=== PATIENT | female | born 1940 | race Caucasian/White ===

== ENCOUNTER → 2020-09-26 | Outpatient (CLI) | payer OTHER ==
[~2020-09-26] MED LIST: ACET500 PO; AMAN100 PO; ASPI81CH PO; ATOR80 PO; CALC.25 PO; DIVA125 PO; DOCU100 PO; FELODIPINE ER10 M1 PO; FENO54 PO; FURO20 PO; Haldol5 MG/1 ML PO; MEMA10 PO; METO25ER PO; NYSTRIT TOP; VITAMIN D325 MC3 PO
[2020-09-27 13:57] LABS: Source, Urine Clean Catch
[2020-09-27 16:03] LABS: Appearance, Urine Clear (Clear); Bilirubin, Urine Neg (Neg); Blood, Urine 1+ (Neg); Color, Urine Yellow (P-Yellow); Glucose Qualitative, Urine Neg (Neg); Ketones, Urine Neg (Neg); Leukocyte Esterase, Urine 2+ (Neg); Nitrite, Urine Pos (Neg); Protein, Urine 1+ (Neg); Urobilinogen, Urine NORM (Normal)
[2020-09-27 16:24] LABS: Bacteria Many /hpf; Red Blood Cells, Urine 0-2 /hpf (0-2); Squamous Epithelial Cells Few /hpf (Few)
== END | disposition home or self-care (01) ==
LOC: LAB SHORT 13:55
PROVIDERS: Family Medicine
DX: N39.0 Urinary tract infection, site not specified (principal)
CPT/HCPCS: 81001; 87077; 87086; 87186

== ENCOUNTER 2020-11-03 15:18 | Emergency (ER) | payer OTHER ==
[~2020-11-03] VITALS: Ht 157.5 cm; Wt 70.3 kg
[2020-11-03] MEDS ORDERED: ACET500 PO (15:33)
[2020-11-03] MEDS ORDERED: ASPI81CH PO (15:34)
[2020-11-03] MEDS ORDERED: AMAN100 PO (15:34)
[2020-11-03] MEDS ORDERED: ATOR80 PO (15:34)
[2020-11-03] MEDS ORDERED: CALC.25 PO (15:35)
[2020-11-03] MEDS ORDERED: FELODIPINE ER10 M1 PO (15:36)
[2020-11-03] MEDS ORDERED: DIVA125 PO (15:36)
[2020-11-03] MEDS ORDERED: DOCU100 PO (15:36)
[2020-11-03] MEDS ORDERED: FURO20 PO (15:37)
[2020-11-03] MEDS ORDERED: FENO54 PO (15:37)
[2020-11-03] MEDS ORDERED: MEMA10 PO (15:38)
[2020-11-03] MEDS ORDERED: Haldol5 MG/1 ML PO (15:38)
[2020-11-03] MEDS ORDERED: VITAMIN D325 MC3 PO (15:39)
[2020-11-03] MEDS ORDERED: NYSTRIT TOP (15:39)
[2020-11-03] MEDS ORDERED: METO25ER PO (15:39)
[2020-11-03 15:53] LABS: Source, Urine Catheter
[2020-11-03 15:57] LABS: Appearance, Urine Clear (Clear); Bilirubin, Urine Neg (Neg); Blood, Urine 2+ (Neg); Color, Urine Yellow (P-Yellow); Glucose Qualitative, Urine Neg (Neg); Ketones, Urine Neg (Neg); Leukocyte Esterase, Urine Neg (Neg); Nitrite, Urine Neg (Neg); Protein, Urine 1+ (Neg); Urobilinogen, Urine NORM (Normal); pH, Urine 6.5 (5.0-8.0)
[2020-11-03 16:03] LABS: White Blood Cells, Urine 0-2 /hpf (0-5)
[2020-11-03 16:04] LABS: Bacteria Few /hpf; Squamous Epithelial Cells Rare /hpf (Few)
[2020-11-03 16:34] LABS: BASOPHILS ABSOLUTE AUTO 0.04 K/mm3 (0.00-0.23); BASOPHILS PERCENT AUTO 0 % (0-2); EOSINOPHILS ABSOLUTE AUTO 0.19 K/mm3 (0.00-0.68); EOSINOPHILS PERCENT AUTO 2 % (0-6); Hematocrit 44.3 % (33.0-51.0); Hemoglobin 14.3 g/dL (11.5-16.0); IMMATURE GRAN ABSOLUTE AUTO 0.04 K/mm3 (0.00-0.10); IMMATURE GRAN PERCENT AUTO 0 % (0-1); LYMPHOCYTES ABSOLUTE AUTO 1.74 K/mm3 (0.84-5.20); LYMPHOCYTES PERCENT AUTO 19 % (21-46); MONOCYTES ABSOLUTE AUTO 0.95 K/mm3 (0.16-1.47); MONOCYTES PERCENT AUTO 10 % (4-13); Mean Corpuscular HGB 29.4 pg (26.0-34.0); Mean Corpuscular HGB Conc 32.3 g/dL (31.5-36.5); Mean Corpuscular Volume 91 fL (80-100); Mean Platelet Volume 8.8 fL (9.1-12.4); NEUTROPHILS ABSOLUTE AUTO 6.47 K/mm3 (1.96-9.15); NEUTROPHILS PERCENT AUTO 69 % (41-73); Platelet Count 285 K/mm3 (150-400); RDW Coefficient Variation 13.1 % (11.7-14.2); RDW Standard Deviation 44.1 fL (35.1-46.3); Red Blood Cell Count 4.87 M/mm3 (3.80-5.20); White Blood Cell Count 9.43 K/mm3 (4.00-11.30)
[2020-11-03 16:46] LABS: Albumin, Blood 3.5 g/dL (3.4-5.0); Albumin/Globulin Ratio 1.1 (0.8-1.8); Bilirubin, Total 0.3 mg/dL (0.1-1.0); Bun/Creatinine Ratio 28.3 (12.0-20.0); Calcium, Blood 9.7 mg/dL (8.5-10.1); Creatinine, Blood 1.06 mg/dL (0.40-1.00); Globulin, Blood 3.3 g/dL (2.2-4.0); Potassium, Blood 3.9 mmol/L (3.5-5.5); Total Protein, Blood 6.8 g/dL (6.4-8.2)
== END 2020-11-03 17:32 | disposition home or self-care (01) ==
LOC: ER 15:18
PROVIDERS: Emergency Medicine
DX: R31.9 Hematuria, unspecified (principal); Z88.2 Allergy status to sulfonamides; Z88.6 Allergy status to analgesic agent; Z88.8 Allergy status to other drugs, medicaments and biological substances; Z79.899 Other long term (current) drug therapy
CPT/HCPCS: 36415; 80053; 81001; 85025; 96365; 99283-25; J0696; P9612

== ENCOUNTER 2020-12-25 11:15 | Inpatient (IN) | payer OTHER ==
[~2020-12-25] VITALS: Ht 162.6 cm; Wt 68.0 kg
[~2020-12-25 11:15] MED LIST changes: -ASPI81CH PO; +Aspir 8181 MG PO
[2020-12-25 11:49] LABS: Source, Urine Catheter
[2020-12-25 11:55] LABS: Appearance, Urine Clear (Clear); Bilirubin, Urine Neg (Neg); Blood, Urine Neg (Neg); Color, Urine Yellow (P-Yellow); Glucose Qualitative, Urine Neg (Neg); Ketones, Urine 2+ (Neg); Leukocyte Esterase, Urine Neg (Neg); Nitrite, Urine Neg (Neg); Protein, Urine 3+ (Neg); Specific Gravity, Urine 1.025 (1.003-1.022); Urobilinogen, Urine NORM (Normal)
[2020-12-25 12:00] LABS: BASOPHILS ABSOLUTE AUTO 0.03 K/mm3 (0.00-0.23); BASOPHILS PERCENT AUTO 0 % (0-2); EOSINOPHILS ABSOLUTE AUTO 0.03 K/mm3 (0.00-0.68); EOSINOPHILS PERCENT AUTO 0 % (0-6); Hematocrit 44.4 % (33.0-51.0); Hemoglobin 14.1 g/dL (11.5-16.0); IMMATURE GRAN ABSOLUTE AUTO 0.04 K/mm3 (0.00-0.10); IMMATURE GRAN PERCENT AUTO 0 % (0-1); LYMPHOCYTES ABSOLUTE AUTO 0.94 K/mm3 (0.84-5.20); LYMPHOCYTES PERCENT AUTO 10 % (21-46); MONOCYTES ABSOLUTE AUTO 1.05 K/mm3 (0.16-1.47); MONOCYTES PERCENT AUTO 11 % (4-13); Mean Corpuscular HGB 29.4 pg (26.0-34.0); Mean Corpuscular HGB Conc 31.8 g/dL (31.5-36.5); Mean Corpuscular Volume 93 fL (80-100); NEUTROPHILS ABSOLUTE AUTO 7.12 K/mm3 (1.96-9.15); NEUTROPHILS PERCENT AUTO 77 % (41-73); Platelet Count 285 K/mm3 (150-400); RDW Coefficient Variation 14.2 % (11.7-14.2); RDW Standard Deviation 48.7 fL (35.1-46.3); Red Blood Cell Count 4.79 M/mm3 (3.80-5.20); White Blood Cell Count 9.21 K/mm3 (4.00-11.30)
[2020-12-25 12:19] LABS: Albumin/Globulin Ratio 0.9 (0.8-1.8); Bilirubin, Total 0.6 mg/dL (0.1-1.0); Bun/Creatinine Ratio 22.3 (12.0-20.0); Calcium, Blood 10.1 mg/dL (8.5-10.1); Creatinine, Blood 1.3 mg/dL (0.40-1.00); Globulin, Blood 3.5 g/dL (2.2-4.0); Potassium, Blood 3.8 mmol/L (3.5-5.5); Total Protein, Blood 6.5 g/dL (6.4-8.2)
[2020-12-25 12:36] LABS: Amorphous Mod (0-Heavy); Bacteria Mod /hpf; Squamous Epithelial Cells Few /hpf (Few)
[2020-12-25 13:01] LABS: PCO2 Arterial 30.5 mmHg (35-45); PO2 Arterial 65.8 mmHg (80-100); pH Blood Arterial 7.38 (7.35-7.45)
[2020-12-25 15:24] LABS: SARS-Cov-2 (COVID-19) PCR, MMC POSITIVE (NEGATIVE)
[2020-12-25] MEDS ORDERED: DIVA125EC PO (16:37)
[2020-12-25] MEDS ORDERED: HALOPERIDOL PO (16:38)
[2020-12-25] MEDS ORDERED: RISP2 PO (16:40)
--- NOTE | 2020-12-25 18:53 | NUR ---
183 RECEIVED PT TO 309 VIA GURNEY FROM ER. RECEIVED REPORT FROM KADE HAYES. PT TO ER VIA EMS FROM [facility]. PER REPORT, PT FOUND UNRESPONSIVE. PT HAD BEEN HAVING POOR PO INTAKE WITH INCREASED WEAKNESS FOR PAST COUPLE OF DAYS. PER KADE HAYES, PT TESTED POSITIVE FOR COVID ALREADY A MONTH AGO AND STILL POSITIVE. PT ADMITTED FOR TOXIC METABOLIC ENCEPHALOPATHY. SBP IN THE 60'S ON ADMIT. 2L NS BOLUS GIVEN WITH IMPROVEMENT. BIOX 94-96% ON RA. STRAIGHT CATH DONE IN ER SHOWING UTI; CIPRO SENT UP. PT HAS BEEN MOSTLY LETHARGIC AND SLEEPING. PALLIATIVE CARE CONSULT ORDERED. PT INCONTINENT OF LOOSE STOOL IN ER AND AGAIN WHEN BROUGHT TO RM. BRUISING TO R EYE AND FORHEAD. SM SLIT/WOUND TO COCCYX NOTED WHEN CHANGING. POSITIONED FOR COMFORT. BED ALARM PLACED FOR SAFETY. CALL LT IN REACH. REPORT TO BE GIVEN TO ONCOMING RN.
[2020-12-25 22:37] LABS: U Amphetamine Screen Not Detected; U Barbituate Screen Not Detected; U Benzodiazapine Screen Not Detected; U Buprenorphine Screen Not Detected; U Cannabinoids Screen Not Detected; U Cocaine Screen Not Detected; U Methadone Screen Not Detected; U Methamphetamine Screen Not Detected; U Opiates Screen Not Detected; U Oxycodone Screen Not Detected; U Phencyclidine Screen Not Detected; U Propoxyphene Screen Not Detected
--- NOTE | 2020-12-26 04:48 | NUR ---
SHIFT SUMMARY: VA WAS ADMITTED PRIOR TO SHIFT CHANGE. SHE HAS BEEN LETHARGIC, SLEEPING THE ENTIRE SHIFT. SHE DID WAKE UP FOR ASSESSMENT. FOLLOWED DIRECTIONS WELL, AND ATTEMPTED TO ANSWER QUESTIONS. SPEECH WAS SLURRED AND DIFFICULT TO UNDERSTAND AT TIMES. SEVERE WEAKNESS BUE AND BLE. WATERWORKS EMPLOYEE WERE EQUAL DISPITE THE WEAKNESS. ABLE TO MOVE ALL EXTREMITITES, ABLE TO INFORM ME ABOUT HER FALL. BRUISING NOTED TO RIGHT EYE. DENIES PAIN. STATES HUNGRY AND DOES NOT UNDERSTAND WHY SHE COULD NOT EAT. FALLS BACK TO SLEEP EASILY. MILD RASH IN GROIN, AND OPEN SITE ON THE BOTTOM. NPO, NO MEDS GIVEN DUE TO AMS. ADMINISTERED ANTIBOTIC. VS WNL, AFEBRILE. BED ALARM ON. CALL LIGHT IN REACH.
[2020-12-26 05:15] LABS: BASOPHILS ABSOLUTE AUTO 0.03 K/mm3 (0.00-0.23); BASOPHILS PERCENT AUTO 0 % (0-2); EOSINOPHILS ABSOLUTE AUTO 0.15 K/mm3 (0.00-0.68); EOSINOPHILS PERCENT AUTO 2 % (0-6); Hemoglobin 12.3 g/dL (11.5-16.0); IMMATURE GRAN ABSOLUTE AUTO 0.02 K/mm3 (0.00-0.10); IMMATURE GRAN PERCENT AUTO 0 % (0-1); LYMPHOCYTES ABSOLUTE AUTO 1.26 K/mm3 (0.84-5.20); LYMPHOCYTES PERCENT AUTO 18 % (21-46); MONOCYTES ABSOLUTE AUTO 0.88 K/mm3 (0.16-1.47); MONOCYTES PERCENT AUTO 13 % (4-13); Mean Corpuscular HGB 29.1 pg (26.0-34.0); Mean Corpuscular HGB Conc 31.5 g/dL (31.5-36.5); Mean Corpuscular Volume 92 fL (80-100); Mean Platelet Volume 9.3 fL (9.1-12.4); NEUTROPHILS PERCENT AUTO 67 % (41-73); Platelet Count 215 K/mm3 (150-400); RDW Coefficient Variation 14.5 % (11.7-14.2); RDW Standard Deviation 48.9 fL (35.1-46.3); Red Blood Cell Count 4.22 M/mm3 (3.80-5.20); White Blood Cell Count 7.04 K/mm3 (4.00-11.30)
[2020-12-26 05:47] LABS: Albumin, Blood 2.4 g/dL (3.4-5.0); Albumin/Globulin Ratio 0.8 (0.8-1.8); Bilirubin, Total 0.6 mg/dL (0.1-1.0); Bun/Creatinine Ratio 27.1 (12.0-20.0); Calcium, Blood 9.6 mg/dL (8.5-10.1); Potassium, Blood 3.5 mmol/L (3.5-5.5); Total Protein, Blood 5.4 g/dL (6.4-8.2)
--- NOTE | 2020-12-26 10:45 | NUR ---
PATIENT REMAINS LETHARGIC RESPONDING TO TACTILE STIMULUS ONLY DEPALOTE AND HALDOL HELD THIS AM D/T PATIENT STATUS DR ALEJANDRE MADE AWARE AT THIS TIME DURING BEDSIDE ROUNDS PATIENT ALSO TO REMAIN NPO PER DR ORDERS WILL CONT TO MONITOR PATIENT EXPRESS NO PAIN NO DISTRESS NOTED
[2020-12-26 13:54] LABS: Valproic Acid 5.9 ug/mL (50.0-100.0)
--- NOTE | 2020-12-26 15:43 | NUR ---
PATIENT REMAINS LETHARGIC RESPONSIDING TO TACTILE STIUMULI EYES REMAINS CLOSED REMAINS NPO IV FLUIDS MAINTATINED ORDERED PATIENT REMAINS BEDBOUND TURNED AND REPOSITIONED X1-2 PERSON ASSIST PATIENT ABLE TO ASSIST WITH TURNING INCONTINUENT OF BLADDER NO BM NOTED THIS SHIFT EXPRESSES NO PAIN NO SOB NO DISTRESS NOTED PALLIATIVE TO BEDSIDE THIS AFTERNOON PER KAREEN WILL F/U WITH FAMILY AND [place] REGARDING PATIENT CONFORT CARE/PALLIATIVE STATUS WILL WILL CONT TO MONITOR
--- NOTE | 2020-12-26 17:25 | NUR ---
Family contact: Legal Guardian/proxy is son Cesar German [phone] POLST obtained from [facility], completed by pt and CERTIFIED NURSING ATTENDANT in 2017 is not valid as it states :"Full Code, comfort measures only, no nutritional support, dialysis ok". Son and [facility] staff aware of inconsistencies in pt's old POLST completed by her when she may have already been an incompetent decision maker due to her dementia and mental illness. Cesar reports conversations with his mom in past, with her expressed wishes for no CPR or intubation and no desire for continuance of care if she was suffering. Our current orders are in agreement with pt's previously expressed wishes and son's current expressed wishes. I cased conferenced with JUAN LUIS re: goals of care & d/c plan. Chart reviewed & I spoke with pt's RN and DR prior to calling son. POLST and options for care/dc plan reviewed .Son states he was forced to seek guardianship of his mom due to her active delusional state with mental health disorder in addition to her dementia. He was aware of chronic kidney disease and CAD that has been medically managed. Son reports that infusion of regeneron and early intervention prevented his mom from being hospitalized with covid a number of weeks ago but she has not returned to former level of energy, appetite or cognition since becoming ill. He states his roxKenna spoke with pt by phone yesterday from her hospital room. I reviewed Dr and RNs assessments with Cesar and discussed code status, goals of care and plan of care at this time. He asked questions about hospice and dc destination options. When discussing the level of care Yamilet is needing, he conceeded that he would not be able to provide her care at home and would want her to return to [facility] with hospice if that seems appropriate at d/c. He understands that she is not awake enough to feed or give fluids by mouth currently and that we are supplementing with IV fluids and some nutrition. He verbalized understanding that even if pt does not wake enough or if her intake remains minimal to none that IV hydration/nutrition would not be done at [facility] and that would limit her prognosis further. Plan formulated with son to see how the next day goes, update again tomorrow and further discuss goals of care with possible transition to comfort care if pt worsens or shows no improvement. He is clear that when pt is deemed ready for d/c that he would like her to return to [facility]. I spoke with RN at [facility] and gave update when requesting pt's POLST. I updated JUAN LUIS, RN and on my conversation with son, Cesar.
[2020-12-27 05:12] LABS: BASOPHILS ABSOLUTE AUTO 0.03 K/mm3 (0.00-0.23); BASOPHILS PERCENT AUTO 0 % (0-2); EOSINOPHILS ABSOLUTE AUTO 0.24 K/mm3 (0.00-0.68); EOSINOPHILS PERCENT AUTO 3 % (0-6); Hematocrit 42.1 % (33.0-51.0); Hemoglobin 13.5 g/dL (11.5-16.0); IMMATURE GRAN ABSOLUTE AUTO 0.01 K/mm3 (0.00-0.10); IMMATURE GRAN PERCENT AUTO 0 % (0-1); LYMPHOCYTES ABSOLUTE AUTO 1.69 K/mm3 (0.84-5.20); LYMPHOCYTES PERCENT AUTO 23 % (21-46); MONOCYTES ABSOLUTE AUTO 0.93 K/mm3 (0.16-1.47); MONOCYTES PERCENT AUTO 13 % (4-13); Mean Corpuscular HGB 29.5 pg (26.0-34.0); Mean Corpuscular HGB Conc 32.1 g/dL (31.5-36.5); Mean Corpuscular Volume 92 fL (80-100); Mean Platelet Volume 9.4 fL (9.1-12.4); NEUTROPHILS ABSOLUTE AUTO 4.36 K/mm3 (1.96-9.15); NEUTROPHILS PERCENT AUTO 60 % (41-73); Platelet Count 231 K/mm3 (150-400); RDW Coefficient Variation 14.2 % (11.7-14.2); RDW Standard Deviation 47.9 fL (35.1-46.3); Red Blood Cell Count 4.58 M/mm3 (3.80-5.20); White Blood Cell Count 7.26 K/mm3 (4.00-11.30)
--- NOTE | 2020-12-27 05:15 | NUR ---
SHIFT SUMMARRY PATIENT C/O COCCYX, TREATED WITH PRN FENTANYL IV WITH GOOD EFFECTS. SLEPT QUIETLY DURING THE NIGHT WITH NO ACUTE MEDICAL CHANGE
[2020-12-27 05:43] LABS: Albumin, Blood 2.6 g/dL (3.4-5.0); Anion Gap 7 mmol/L (6-16); Blood Urea Nitrogen 28 mg/dL (8-24); Bun/Creatinine Ratio 33.3 (12.0-20.0); CO2, Blood 23 mmol/L (21-32); Calcium, Blood 9.8 mg/dL (8.5-10.1); Chloride, Blood 111 mmol/L (98-108); Creatinine, Blood 0.84 mg/dL (0.40-1.00); Glomerular Filtration Rate >60 (60-); Glucose, Blood 121 mg/dL (70-99); Phosphorus, Blood 2.6 mg/dL (2.5-4.9); Potassium, Blood 3.6 mmol/L (3.5-5.5); Sodium, Blood 141 mmol/L (136-145)
--- NOTE | 2020-12-27 10:21 | NUR ---
EMR reviewed and case conferenced with pt's RN and CM this am. Pt is more awake and alert today. She is still not eating or drinking with inadequate intake for sustaining life. ST eval pending. I spoke with son, Cesar and provided update. Discussed [facility] advanced care planning and hospice if pt's PO intake/interest in eating did not return. I discussed that pt's behaviors may become problematic now that all routine maintenance rxs have been stopped for a couple days. Cesar acknowledged this. We discussed restart of rxs and ST eval. He warned to be alert for two distinct personalities. One is a sweet, NUNA[place]YARMIUT, older lady and the other is a "raging bitch who will take a swing at you and can hear anything across three rooms". When I passed this on to RN she confirmed that pt had taken a swing at the ST in to evaluate for feeding plan and swallow. Will cont to follow for support. If pt meets criteria for protein/calorie malnutrion she would meet medicare hospice criteria but I do not believe that on the dementia dx alone she would meet medicare hospice criteria. Her dual dx of mental illness/dementia may weigh in but that would be up to an individual hospice agency. Son confirms his mom has been steadily loosing weight for some time and has had minimal interest in activity, eating and drinking at [facility]. We reviewed the normal progression of dementia including this withdrawal from activity, eating and drinking, weakness and impaired swallow, weight loss. Cesar verbalized understanding.
--- NOTE | 2020-12-27 17:11 | NUR ---
PATIENT NOTED THIS SHIFT WITH INCREASED LOC EYES OPEN RESPONDING TO VERBAL COMMANDS REMAINS WITH INTERMITTENT CONFUSION AND FORGETFULNESS REORIENTED TO PLACE TIME AND EVENT NEEDED HOWEVER ANSWERING SOME QUESTIONS APPROPRIATELY REMAINS IN BED CHECK AND CHANGED TUNRED AND REPOSITIONED THROUGHOUT THE SHIFT VERBALIZED MILD PAIN TO BACK/SACRUM TYLENOL GIVEN ORDERED EVAL/TX PER ST THIS SHIFT PATIENT NO LONGER NPO DIET UPGRADED ABLE TO TOLERATE THIN LIQUIDS WILL CONTINUE TO MONITOR WILL ATTEMPT TO ENCOURAGE ASSIST WITH PO INTAKE/DINNER DISCOLRATION/BRUISING REMAINS TO RT EYE/SIDE OF FACE DENIES HEADACHE WILL CONT TO MONITOR
--- NOTE | 2020-12-27 18:25 | NUR ---
PATIENT ALERT ORIENTED TO SELF REMAINS CONFUSED INADEQUATE/POOR MEAL INTAKE DESPITE SETUP ASSIST AND ENCOURAGEMENT PATIENT ONLY CONSUMED 1-2 BITES OF FOOD IV FLUIDS MAINTAINED PER ORDERS AT THIS TIME WILL CONT TO MONITOR
[2020-12-28 04:53] LABS: BASOPHILS ABSOLUTE AUTO 0.03 K/mm3 (0.00-0.23); BASOPHILS PERCENT AUTO 0 % (0-2); EOSINOPHILS ABSOLUTE AUTO 0.16 K/mm3 (0.00-0.68); EOSINOPHILS PERCENT AUTO 2 % (0-6); Hematocrit 38.3 % (33.0-51.0); Hemoglobin 12.9 g/dL (11.5-16.0); IMMATURE GRAN ABSOLUTE AUTO 0.03 K/mm3 (0.00-0.10); IMMATURE GRAN PERCENT AUTO 0 % (0-1); LYMPHOCYTES ABSOLUTE AUTO 1.34 K/mm3 (0.84-5.20); LYMPHOCYTES PERCENT AUTO 18 % (21-46); MONOCYTES ABSOLUTE AUTO 0.86 K/mm3 (0.16-1.47); MONOCYTES PERCENT AUTO 11 % (4-13); Mean Corpuscular HGB 30.3 pg (26.0-34.0); Mean Corpuscular HGB Conc 33.7 g/dL (31.5-36.5); Mean Corpuscular Volume 90 fL (80-100); Mean Platelet Volume 9.3 fL (9.1-12.4); NEUTROPHILS ABSOLUTE AUTO 5.21 K/mm3 (1.96-9.15); NEUTROPHILS PERCENT AUTO 68 % (41-73); Platelet Count 229 K/mm3 (150-400); RDW Coefficient Variation 14.4 % (11.7-14.2); RDW Standard Deviation 47.7 fL (35.1-46.3); Red Blood Cell Count 4.26 M/mm3 (3.80-5.20); White Blood Cell Count 7.63 K/mm3 (4.00-11.30)
--- NOTE | 2020-12-28 04:53 | NUR ---
SHIFT SUMMARRY PATIENT IS CALM AND QUIET THROUGH OUT SHIFT. HR TACHY IN THE 150S. MD NOTIFIED. TELE AND EKG ORDERED. ABNORMAL WIDE QRS TACHYCARDIA NOTED. PO METOPROLOL ORDERED AND GIVEN WITH MINIMAL EFFECTS. TWO DOSES OF IV LOPRESSOR 5MG ORDERED WITH GOOD EFFECTS. LAST H RATE 118.
[2020-12-28 05:16] LABS: Albumin, Blood 2.5 g/dL (3.4-5.0); Anion Gap 6 mmol/L (6-16); Blood Urea Nitrogen 29 mg/dL (8-24); Bun/Creatinine Ratio 35.7 (12.0-20.0); CO2, Blood 22 mmol/L (21-32); Calcium, Blood 9.5 mg/dL (8.5-10.1); Chloride, Blood 112 mmol/L (98-108); Creatinine, Blood 0.81 mg/dL (0.40-1.00); Glomerular Filtration Rate >60 (60-); Glucose, Blood 147 mg/dL (70-99); Phosphorus, Blood 2.9 mg/dL (2.5-4.9); Sodium, Blood 140 mmol/L (136-145)
--- NOTE | 2020-12-28 08:12 | NUR ---
PATIENT WOKE EASILY, TELE CALL HEART RATE 140'S, DENIES PAIN OR N/V
--- NOTE | 2020-12-28 10:18 | NUR ---
DR COX ROUNDED, EKG ORDERED, LOPRESSOR DOSE GIVEN, TELE READING AFIB VS SINUS TACH
--- NOTE | 2020-12-28 16:02 | NUR ---
REPORT TO PCU NURSE FR PATIENT TRANSFER
--- NOTE | 2020-12-28 16:03 | NUR ---
Received report on this pt for transfer to PCU. Notified pharmacy to send gtt to pcu instead of medical floor. Medical charge nurse notified that we are ready to transfer the pt but they are awaiting assistance upstairs.
--- NOTE | 2020-12-28 16:15 | NUR ---
TRANSPORTED TO U FOR CARDIZEM GTT
--- NOTE | 2020-12-28 16:17 | NUR ---
KAMLA FROM [facility] CALLED, PATIENT HAS A HISTORY OF MULTIPLE PERSONALITY DISORDERS, VERY CONFUSED, BASELINE ACTIVITY IS USING THE WALKER FOR VERY SHORT DISTANCES, PATIENT FEEL ON 11/27/20 AND THAT IS HOW SHE GOT THE BLACK EYE, PATIENT HAS A SON THAT SHE CONTINUES TO SAY SHE HAS DISOWNED JOESPH
--- NOTE | 2020-12-28 16:55 | NUR ---
PT ARRIVED TO ROOM FROM MEDICAL FLOOR.SHE IS A/O X 4 BUT FATIGUED. UPON ARRIVAL HER HEART RATE WAS IN THE 140'S AND SHE WAS IN A-FIB/A-FLUTTER PER BALLOON SANDER. THE CARDIZEM GTT WAS STARTED ORDERED AND SHE QUICKLY RESPONDED AND HER GTT WAS TITRATED DOWN TO 5MG/HR AND HER HEART RATE IS CURRENTLY 62. SHE DENIES ANY CHEST PAIN OR SOB. SHE HAS NO REPORTS OF DISCOMFORT. HER BP IS STABLE. THIS NURSE CHANGED HER BRIEF AND WASHED HER FACE. SHE IS RESTING NOW WITH HER CALL LIGHT IN REACH.
--- NOTE | 2020-12-28 17:32 | NUR ---
UPDATE PT HEART RATE WAS DIPPING DOWN INTO THE 50'S. CARDIZEM GTT WAS STOPPED. CHARGE NURSE NOTIFIED. DR ALEJANDRE NOTIFIED AND GAVE ORDERS TO DC THE GTT AND START PRN METOPRLOL. PT HEART RATE IS FLUCTUATING BETWEEN 50'S-60'S AND SHE IS ASLEEP. POWERGLIDE WAS STARTED FOR IV ACCESS. SHE HAS HER CALL LIGHT IN REACH.
--- NOTE | 2020-12-28 18:29 | NUR ---
Telephone update to son and guardian, Cesar, this evening with report on events of the night and t/o today, including transfer to PCU #6 for darienthomyarely broderick for a-fib. Answered Cesar's questions re: causes and tx for a-fib and other chronic conditions. Updated him on improved alertness, PO intake. Cesar reports late in adulthood he recognized that his mom had multiple personalities for as long as he can remember but felt that whe was able to hide them and manage her psych s/s better when she was a young women and has increasingly not been able to do that as she aged. He states the dementia was only noted and dx in recent years but his mom has always been "crazy" with multiple distinct personalities that he can identify when each one is present. He again reports there have been two primary personalities but additional ones noted over the years also. He asked more questions re: Hospice and states that if his mom qualifies for hospice at the time of d/c he would be in favor of it to assist staff and support his mom at [facility]. He would like to complete a new POLST as he states the one completed by his mom is invalid for reasons mentioned in a previous note with conflicting requests. I reviewed again criteria for hospice and stated we would reevaluate on Thursday for that and even if she did not meet criteria at the time of d/c that in the future if Yamilet was not eating/drinking or appeared to be failing, her PCP could be contacted for Hospice care instead of readmission to the hospital. I passed on to Cesar that is treating current issues and concerns to improve her health status and QOL if possible, therapy and medications if pt allows and that she is not medically ready for d/c at this time. Cesar verbalized understanding and appreciation for the update. I gave him the unit # for his daughter to call for updates over the weekend.
--- NOTE | 2020-12-29 07:20 | NUR ---
SHIFT SUMMARY PT IS A/OX0 WITH CONFUSION. SOMETIMES VERBALISES WHAT SHE NEEDS. PT ON TELE AFIB UNCONTROLLED MD AWARE DID GIVE MEDS PER ORDER AND HAD TO CALL IN AM FOR ELEVATED HR; MED. PER ORDERS GOT HR TO LOW 100'S. DOES NOT CALL APPROPRIATELY. REPOSITIONED Q2H TURNS. BUTTOCK AREA PINK/RED, CREAM APPLIED AND CLEANED.
--- NOTE | 2020-12-29 07:48 | NUR ---
[place] of Care Pt is awake and alert but does not want to be disturbed. She is able to answer most questions but does not know the date/time. COAL UNLOADER assisted her with a bed bath. Per report her heart rate was elevated over night and this will be addressed with the DR this morning during rounds as she was sensitive to the cardizem gtt last maryse. The bed alarm is on for safety and she has her call light in reach.
[2020-12-29 10:06] LABS: BASOPHILS ABSOLUTE AUTO 0.04 K/mm3 (0.00-0.23); BASOPHILS PERCENT AUTO 1 % (0-2); EOSINOPHILS ABSOLUTE AUTO 0.14 K/mm3 (0.00-0.68); EOSINOPHILS PERCENT AUTO 2 % (0-6); Hematocrit 38.9 % (33.0-51.0); IMMATURE GRAN ABSOLUTE AUTO 0.02 K/mm3 (0.00-0.10); IMMATURE GRAN PERCENT AUTO 0 % (0-1); LYMPHOCYTES ABSOLUTE AUTO 1.51 K/mm3 (0.84-5.20); LYMPHOCYTES PERCENT AUTO 20 % (21-46); MONOCYTES ABSOLUTE AUTO 0.83 K/mm3 (0.16-1.47); MONOCYTES PERCENT AUTO 11 % (4-13); Mean Corpuscular HGB 30.4 pg (26.0-34.0); Mean Corpuscular HGB Conc 33.4 g/dL (31.5-36.5); Mean Corpuscular Volume 91 fL (80-100); Mean Platelet Volume 9.6 fL (9.1-12.4); NEUTROPHILS ABSOLUTE AUTO 4.91 K/mm3 (1.96-9.15); NEUTROPHILS PERCENT AUTO 66 % (41-73); Platelet Count 199 K/mm3 (150-400); RDW Coefficient Variation 14.7 % (11.7-14.2); RDW Standard Deviation 48.8 fL (35.1-46.3); Red Blood Cell Count 4.27 M/mm3 (3.80-5.20); White Blood Cell Count 7.45 K/mm3 (4.00-11.30)
[2020-12-29 10:09] LABS: Albumin, Blood 2.4 g/dL (3.4-5.0); Anion Gap 4 mmol/L (6-16); Blood Urea Nitrogen 30 mg/dL (8-24); Bun/Creatinine Ratio 34.4 (12.0-20.0); CO2, Blood 24 mmol/L (21-32); Calcium, Blood 9.6 mg/dL (8.5-10.1); Chloride, Blood 113 mmol/L (98-108); Creatinine, Blood 0.87 mg/dL (0.40-1.00); Glomerular Filtration Rate >60 (60-); Glucose, Blood 116 mg/dL (70-99); Phosphorus, Blood 2.9 mg/dL (2.5-4.9); Sodium, Blood 141 mmol/L (136-145)
--- NOTE | 2020-12-29 11:56 | NUR ---
UPDATE Dr Gutiérrez changed patient back to medical status. The echo was completed as ordered. Report has been called to the receiving RN. All personal belongings sent with the pt. Pt assisted up to medical floor.
--- NOTE | 2020-12-29 13:13 | NUR ---
RECIEVED PT FROM PCU 6 AT 1210. PT TRANSFERED OVER TO NEW BED. PT JUST WANTED TO SLEEP AND DID NOT ENTERACT MUCH DURING TURNING AND MOVING HER OVER AND CHANGING SHEETS. PT JUST WENT BACK TO SLEEP. CALL LIGHT IS WITHIN REACH AND BED ALARM PLACED.
--- NOTE | 2020-12-29 14:12 | NUR ---
TRANSFERING CARE OF PT. PT HAS BEEN SLEEPIING SINCE SHE ARRIVED. PT WILL WAKE UP, BUT SEEMS TO REALLY WANT TO SLEEP. HR PER BIAZZI NITRATOR OPERATOR HAS BEEN IN THE AROUND 120. CALL LIGHT IS WITHIN REACH AND BED ALARM IN PLACE.
--- NOTE | 2020-12-29 18:28 | NUR ---
SHIFT SUMMARY PATIENT HAS BEEN ASLEEP FOR MOST OF SHIFT, WHICH IS NORMAL ACCORDING TO FAMILY. PATIENT OCCASIONALLY WAKES UP WHEN FOOD ARRIVES BUT IS TO WEAK FOR SOLID FOOD AND WILL DRINK ENSURES. PATIENT HAS BEEN TACHY IN THE 120S AND WAS GOING TO PUSH IV METOPROPOL BUT CONFIRMED RATE WITH TELETECH GLORIA AND RATE WAS TRENDING LOWER AND DECLINED TO GIVE MEDICATION DUE TO TREND.
[2020-12-30 05:53] LABS: BASOPHILS ABSOLUTE AUTO 0.04 K/mm3 (0.00-0.23); BASOPHILS PERCENT AUTO 1 % (0-2); EOSINOPHILS ABSOLUTE AUTO 0.36 K/mm3 (0.00-0.68); EOSINOPHILS PERCENT AUTO 5 % (0-6); Hematocrit 39.7 % (33.0-51.0); Hemoglobin 12.7 g/dL (11.5-16.0); IMMATURE GRAN ABSOLUTE AUTO 0.01 K/mm3 (0.00-0.10); IMMATURE GRAN PERCENT AUTO 0 % (0-1); LYMPHOCYTES ABSOLUTE AUTO 1.46 K/mm3 (0.84-5.20); LYMPHOCYTES PERCENT AUTO 20 % (21-46); MONOCYTES ABSOLUTE AUTO 0.72 K/mm3 (0.16-1.47); MONOCYTES PERCENT AUTO 10 % (4-13); Mean Corpuscular HGB 29.7 pg (26.0-34.0); Mean Corpuscular Volume 93 fL (80-100); Mean Platelet Volume 9.6 fL (9.1-12.4); NEUTROPHILS ABSOLUTE AUTO 4.62 K/mm3 (1.96-9.15); NEUTROPHILS PERCENT AUTO 64 % (41-73); Platelet Count 175 K/mm3 (150-400); RDW Coefficient Variation 14.8 % (11.7-14.2); RDW Standard Deviation 50.5 fL (35.1-46.3); Red Blood Cell Count 4.27 M/mm3 (3.80-5.20); White Blood Cell Count 7.21 K/mm3 (4.00-11.30)
[2020-12-30 06:43] LABS: Albumin, Blood 2.4 g/dL (3.4-5.0); Anion Gap 6 mmol/L (6-16); Blood Urea Nitrogen 29 mg/dL (8-24); Bun/Creatinine Ratio 31.9 (12.0-20.0); CO2, Blood 23 mmol/L (21-32); Calcium, Blood 9.7 mg/dL (8.5-10.1); Chloride, Blood 113 mmol/L (98-108); Creatinine, Blood 0.91 mg/dL (0.40-1.00); Glomerular Filtration Rate 60 (60-); Glucose, Blood 113 mg/dL (70-99); Phosphorus, Blood 3.2 mg/dL (2.5-4.9); Potassium, Blood 3.8 mmol/L (3.5-5.5); Sodium, Blood 142 mmol/L (136-145)
--- NOTE | 2020-12-30 07:40 | NUR ---
SHIFT SUMMARY PT WAS INITIALLY DROWSY AT BEGINNING OF SHIFT BUT BECAME MORE ALERT TOWARDS 0400, USING CALL LIGHT TO CALL FOR PAIN MEDICATION PRN BACK PAIN. RECIEVED METOPROLOL AT 1900 FOR HR >120. TELE MONITORED PT BETWEEN 60-100'S A-FIB. IV ACCESS IN THE RAC. PT WITH HX OF DEMENTIA, HTN, HLD, TOXIC METABOLIC ENCEPH AND COVID.
--- NOTE | 2020-12-30 15:51 | NUR ---
SHIFT SUMMARY PATIENT IS ALERT AND ORIENTED X4 MORE INTERACTVE. PATIENT SELF FED BREAKFAST AND LUNCH AND HAD A GOOD APPETITE. KNOCKUP WORKER CALLED X2 ABOUT HEAT RATE OVER 120 WENT TO MEDICATE PER ORDERS NAD HEART RATE WAS 89 MEDICATION NOT ADMINISTERED. PATIENT IN STABLE CONDITOIN WILL CONTINUE TO MONITOR.
--- NOTE | 2020-12-31 06:29 | NUR ---
SHIFT SUMMARY PATIENT ALERT AND ORIENTED X3. MEDICATE PER EMAR FOR PAIN. NO COMPLAINTS OF SHORTNESS OF BREATH. NO ACUTE ISSUES NOTED OVERNGIHT. BED IN LOWEST POSITION WITH WHEELS LOCKED AND ALARM ON. CALL LIGHT WITHIN REACH. REPORT GIVEN TO ONCOMING RN.
--- NOTE | 2020-12-31 12:48 | NUR ---
Update to son on progress and status over weekend as planned. POLST completed over the phone with son, who is pt's guardian also. He was glad to hear that mentation and appetite/intake had improved. He states his mom has always said she did not want CPR, intubation or to be hooked to tubes for mcc feeding or dialysis. This was outlined in POLST and reviewed with pt's bedside nurse and CM working on d/c planning. Son, Cesar, informed that pt may be medically ready for d/c soon and return to [facility]. He has been in contact with them since pt's admission and states they were agreeable to her returning home. CM had also been in contact with them last week. Today's CM updated on POLST and need for signature and copy to [facility] to submit to medical records before original sent to [facility] with pt.
[2020-12-31] MEDS ORDERED: OLAN5 PO (14:15)
--- NOTE | 2020-12-31 17:14 | NUR ---
DISCHARGE NOTE PT IS AO. PT IV REMOVED BY THIS RN PER DOCUMENTATION. DC INSTRUCTIONS AND MEDICATIONS SENT TO [facility]. POLST FORM FAXED BY [facility] AND COPY PROVIDED TO TRANSPORTER. PT ASSISTED INTO WHEELCHAIR WITH 3 ASSIST. PT DRESSED IN HOSPITAL GOWN FOR DC. PT BELONGINGS GATHERED FROM ROOM. PT LEFT BUILDING WITH TRANSPORT VIA WHEELCHAIR TO [facility]. THIS RN GAVE AN UPDATE TO FREDDY CASON.
== END 2020-12-31 17:08 | disposition home or self-care (01) | DRG 91 ==
LOC: ER 11:15 → MEDS 16:25 → PCU 12-28 16:10 → MEDS 12-29 12:10 → ENPENDDIS 12-31 12:57 → MEDS 12-31 17:08
PROVIDERS: Emergency Medicine; Family Medicine; ADMIT Hospitalist
PROC: 8E0ZXY6 Isolation (ICD-10-PCS; principal; 2020-12-25)
DX: G92 Toxic encephalopathy (principal); U07.1 COVID-19; I48.92 Unspecified atrial flutter; N17.9 Acute kidney failure, unspecified; E78.5 Hyperlipidemia, unspecified; I25.10 Atherosclerotic heart disease of native coronary artery without angina pectoris; Z66 Do not resuscitate; E86.0 Dehydration; I95.9 Hypotension, unspecified; I08.1 Rheumatic disorders of both mitral and tricuspid valves; M81.0 Age-related osteoporosis without current pathological fracture; R79.1 Abnormal coagulation profile; I12.9 Hypertensive chronic kidney disease with stage 1 through stage 4 chronic kidney disease, or unspecified chronic kidney disease; F03.90 Unspecified dementia, unspecified severity, without behavioral disturbance, psychotic disturbance, mood disturbance, and anxiety; I48.91 Unspecified atrial fibrillation; S09.90XA Unspecified injury of head, initial encounter; N18.9 Chronic kidney disease, unspecified; Z88.2 Allergy status to sulfonamides; Z88.1 Allergy status to other antibiotic agents; Z95.2 Presence of prosthetic heart valve; Z88.8 Allergy status to other drugs, medicaments and biological substances; Z79.82 Long term (current) use of aspirin; Z79.899 Other long term (current) drug therapy; Z88.6 Allergy status to analgesic agent; W19.XXXA Unspecified fall, initial encounter
CPT/HCPCS: 36415; 36600; 51701; 70450; 71045; 80053; 80069; 80164; 81001; 82803; 82947; 83605; 83735; 83880; 84145; 84443; 85025; 85379; 87040; 87086; 92610; 93005; 93010; 93306; 94762; 96361; 96374; 99285-25; A9270; C1751; J0295; J0744; J1650; J3010; J7030; J7050; U0004

== ENCOUNTER → 2021-01-14 | Outpatient (CLI) | payer OTHER ==
[~2021-01-14] MED LIST changes: +DIVA125EC PO; +HALOPERIDOL PO; +OLAN5 PO; +RISP2 PO
[2021-01-15 19:36] LABS: Appearance, Urine Clear (Clear); Bilirubin, Urine Neg (Neg); Blood, Urine 1+ (Neg); Glucose Qualitative, Urine Neg (Neg); Ketones, Urine Neg (Neg); Leukocyte Esterase, Urine 3+ (Neg); Nitrite, Urine Pos (Neg); Protein, Urine 1+ (Neg); Urobilinogen, Urine NORM (Normal); pH, Urine 6.5 (5.0-8.0)
[2021-01-15 20:05] LABS: Color, Urine Pale Yellow (P-Yellow)
[2021-01-15 20:06] LABS: Bacteria Many /hpf; Red Blood Cells, Urine Not Seen /hpf (0-2); Squamous Epithelial Cells Not Seen /hpf (Few); White Blood Cells, Urine 50-100 /hpf (0-5)
== END | disposition home or self-care (01) ==
LOC: LAB SHORT 11:00
PROVIDERS: Family Medicine
DX: N39.0 Urinary tract infection, site not specified (principal)
CPT/HCPCS: 81001; 87077; 87086; 87186

== ENCOUNTER → 2021-01-31 | Outpatient (CLI) | payer OTHER ==
[2021-01-31 19:12] LABS: Source, Urine Clean Catch
[2021-01-31 20:13] LABS: Appearance, Urine Clear (Clear); Bilirubin, Urine Neg (Neg); Blood, Urine Neg (Neg); Glucose Qualitative, Urine Neg (Neg); Ketones, Urine Neg (Neg); Leukocyte Esterase, Urine Neg (Neg); Nitrite, Urine Neg (Neg); Protein, Urine 2+ (Neg); Specific Gravity, Urine 1.015 (1.003-1.022); Urobilinogen, Urine NORM (Normal)
[2021-01-31 20:22] LABS: Color, Urine Pale Yellow (P-Yellow)
[2021-01-31 20:23] LABS: Red Blood Cells, Urine Not Seen /hpf (0-2); White Blood Cells, Urine Not Seen /hpf (0-5)
[2021-01-31 20:24] LABS: Bacteria Not Seen /hpf; Squamous Epithelial Cells Not Seen /hpf (Few)
== END | disposition home or self-care (01) ==
LOC: LAB SHORT 19:11
PROVIDERS: Family Medicine
DX: N39.0 Urinary tract infection, site not specified (principal)
CPT/HCPCS: 81001

== ENCOUNTER → 2021-07-10 | Outpatient (CLI) | payer OTHER ==
[2021-07-10 18:52] LABS: Source, Urine Voided
[2021-07-10 18:56] LABS: Bilirubin, Urine Neg (Neg); Blood, Urine 1+ (Neg); Glucose Qualitative, Urine Neg (Neg); Ketones, Urine Neg (Neg); Leukocyte Esterase, Urine 3+ (Neg); Nitrite, Urine Pos (Neg); Protein, Urine 2+ (Neg); Urobilinogen, Urine NORM (Normal)
[2021-07-10 19:09] LABS: Appearance, Urine Clear (Clear); Bacteria Few /hpf; Color, Urine Pale Yellow (P-Yellow); Squamous Epithelial Cells Rare /hpf (Few)
== END ==
LOC: LAB SHORT 15:00
PROVIDERS: Family Medicine
DX: N39.0 Urinary tract infection, site not specified (principal)
CPT/HCPCS: 81001

== ENCOUNTER → 2021-07-17 | Outpatient (CLI) | payer OTHER ==
[2021-07-17 12:10] LABS: Source, Urine Clean Catch
[2021-07-17 13:11] LABS: Appearance, Urine Clear (Clear); Bilirubin, Urine Neg (Neg); Blood, Urine Neg (Neg); Color, Urine Yellow (P-Yellow); Glucose Qualitative, Urine Neg (Neg); Ketones, Urine Neg (Neg); Leukocyte Esterase, Urine 3+ (Neg); Nitrite, Urine Neg (Neg); Protein, Urine 1+ (Neg); Specific Gravity, Urine 1.015 (1.003-1.022); Urobilinogen, Urine NORM (Normal)
[2021-07-17 13:36] LABS: Bacteria Many /hpf; Red Blood Cells, Urine 0-2 /hpf (0-2); Squamous Epithelial Cells Rare /hpf (Few)
== END | disposition home or self-care (01) ==
LOC: LAB SHORT 10:00
PROVIDERS: Family Medicine
DX: N39.0 Urinary tract infection, site not specified (principal)
CPT/HCPCS: 81001; 87077; 87086; 87186

== ENCOUNTER → 2021-09-17 | Outpatient (CLI) | payer OTHER ==
[2021-09-17 18:58] LABS: Source, Urine Clean Catch
[2021-09-17 19:27] LABS: Appearance, Urine Hazy (Clear); Bilirubin, Urine Neg (Neg); Blood, Urine 1+ (Neg); Glucose Qualitative, Urine Neg (Neg); Ketones, Urine Neg (Neg); Leukocyte Esterase, Urine 3+ (Neg); Nitrite, Urine Neg (Neg); Protein, Urine 2+ (Neg); Urobilinogen, Urine NORM (Normal)
[2021-09-17 19:40] LABS: Color, Urine Pale Yellow (P-Yellow); White Blood Cells, Urine 25-50 /hpf (0-5)
[2021-09-17 19:41] LABS: Bacteria Mod /hpf; Squamous Epithelial Cells Few /hpf (Few)
== END | disposition home or self-care (01) ==
LOC: LAB SHORT 13:30 → LAB 13:30
PROVIDERS: Family Medicine
DX: N39.0 Urinary tract infection, site not specified (principal)
CPT/HCPCS: 81001

== ENCOUNTER 2021-09-26 14:04 | Day surgery (SDC) | payer OTHER ==
[2021-09-26] MEDS ORDERED: CALC.25 PO (17:14)
[2021-09-26] MEDS ORDERED: SULTRIDS PO (17:14)
[2021-09-26] MEDS ORDERED: FURO20 PO (17:15)
[2021-09-26] MEDS ORDERED: ATOR80 PO (17:15)
[2021-09-26] MEDS ORDERED: THERA-D2000 UNIT PO (17:15)
[2021-09-26] MEDS ORDERED: ACET500 PO (17:16)
[2021-09-26] MEDS ORDERED: DOCU100 PO (17:17)
[2021-09-26] MEDS ORDERED: FENO54 PO (17:17)
[2021-09-26] MEDS ORDERED: MEMA10 PO (17:18)
[2021-09-26] MEDS ORDERED: HALO2 IV (17:19)
[2021-09-26] MEDS ORDERED: DIVA250EC PO (17:19)
[2021-09-26] MEDS ORDERED: AMAN100 PO (17:20)
[2021-09-26] MEDS ORDERED: EXELON1 EA10 TOP (17:20)
== END 2021-09-26 16:30 | disposition home or self-care (01) ==
LOC: ATC 14:04
DX: N39.0 Urinary tract infection, site not specified (principal); R31.9 Hematuria, unspecified
CPT/HCPCS: 96372; J1335; J2001

== ENCOUNTER → 2021-12-19 | Outpatient (CLI) | payer OTHER ==
[~2021-12-19] MED LIST changes: +DIABETIC T100 MG/5 M PO; +DIVA250EC PO; +DULCOLAX400 MG/5 M PO; +EXELON1 EA10 TOP; +HALO2 IV; +HALOPERIDOL2 MG/1 M1 PO; +LOPE2C PO; +SULTRIDS PO; +THERA-D2000 UNIT PO
[2021-12-19 13:38] LABS: Source, Urine Clean Catch
[2021-12-19 15:31] LABS: Appearance, Urine Hazy (Clear); Bilirubin, Urine Neg (Neg); Blood, Urine Neg (Neg); Color, Urine Yellow (P-Yellow); Glucose Qualitative, Urine Neg (Neg); Ketones, Urine 1+ (Neg); Leukocyte Esterase, Urine 3+ (Neg); Nitrite, Urine Neg (Neg); Protein, Urine 1+ (Neg); Specific Gravity, Urine 1.015 (1.003-1.022); Urobilinogen, Urine NORM (Normal)
[2021-12-19 16:01] LABS: Bacteria Many /hpf; Red Blood Cells, Urine 0-2 /hpf (0-2); Squamous Epithelial Cells Mod /hpf (Few)
== END | disposition home or self-care (01) ==
LOC: LAB SHORT 13:35
PROVIDERS: Family Medicine
DX: N39.0 Urinary tract infection, site not specified (principal)
CPT/HCPCS: 81001; 87077; 87086; 87186

== ENCOUNTER 2021-12-20 13:14 | Inpatient (IN) | payer OTHER ==
[~2021-12-20] VITALS: Ht 157.5 cm; Wt 73.2 kg
[~2021-12-20 13:14] MED LIST changes: -DIABETIC T100 MG/5 M PO; -DULCOLAX400 MG/5 M PO; -HALOPERIDOL2 MG/1 M1 PO; -LOPE2C PO; -OLAN5 PO
[2021-12-20 13:45] LABS: Source, Urine Straight Cath
[2021-12-20 13:48] LABS: Appearance, Urine Hazy (Clear); Blood, Urine Neg (Neg); Color, Urine Yellow (P-Yellow); Glucose Qualitative, Urine Neg (Neg); Ketones, Urine 1+ (Neg); Leukocyte Esterase, Urine 1+ (Neg); Nitrite, Urine Neg (Neg); Protein, Urine 1+ (Neg); Specific Gravity, Urine 1.015 (1.003-1.022); Urobilinogen, Urine NORM (Normal)
[2021-12-20 13:58] LABS: Albumin, Blood 2.9 g/dL (3.4-5.0); Albumin/Globulin Ratio 0.9 (0.8-1.8); Bilirubin, Total 0.5 mg/dL (0.1-1.0); Bun/Creatinine Ratio 38.5 (12.0-20.0); Calcium, Blood 9.9 mg/dL (8.5-10.1); Creatinine, Blood 1.74 mg/dL (0.40-1.00); Globulin, Blood 3.4 g/dL (2.2-4.0); Potassium, Blood 3.7 mmol/L (3.5-5.5); Total Protein, Blood 6.3 g/dL (6.4-8.2)
[2021-12-20 14:03] LABS: Bilirubin, Urine 1+ (Neg)
[2021-12-20 14:05] LABS: BASOPHILS ABSOLUTE AUTO 0.05 K/mm3 (0.00-0.23); BASOPHILS PERCENT AUTO 0 % (0-2); EOSINOPHILS ABSOLUTE AUTO 0.02 K/mm3 (0.00-0.68); EOSINOPHILS PERCENT AUTO 0 % (0-6); Hematocrit 45.9 % (33.0-51.0); Hemoglobin 15.1 g/dL (11.5-16.0); IMMATURE GRAN ABSOLUTE AUTO 0.14 K/mm3 (0.00-0.10); IMMATURE GRAN PERCENT AUTO 1 % (0-1); LYMPHOCYTES ABSOLUTE AUTO 0.85 K/mm3 (0.84-5.20); LYMPHOCYTES PERCENT AUTO 7 % (21-46); MONOCYTES ABSOLUTE AUTO 1.38 K/mm3 (0.16-1.47); MONOCYTES PERCENT AUTO 11 % (4-13); Mean Corpuscular HGB 30.9 pg (26.0-34.0); Mean Corpuscular HGB Conc 32.9 g/dL (31.5-36.5); Mean Corpuscular Volume 94 fL (80-100); Mean Platelet Volume 10.3 fL (9.1-12.4); NEUTROPHILS ABSOLUTE AUTO 10.05 K/mm3 (1.96-9.15); NEUTROPHILS PERCENT AUTO 81 % (41-73); Platelet Count 301 K/mm3 (150-400); RDW Coefficient Variation 12.8 % (11.7-14.2); RDW Standard Deviation 44.1 fL (35.1-46.3); Red Blood Cell Count 4.88 M/mm3 (3.80-5.20); White Blood Cell Count 12.49 K/mm3 (4.00-11.30)
[2021-12-20 14:05] LABS: Bacteria Many /hpf; Red Blood Cells, Urine 0-2 /hpf (0-2); Squamous Epithelial Cells Mod /hpf (Few)
[2021-12-20 14:06] LABS: Renal Epithelial Rare /hpf (0-Rare); Transitional Epithelial Cells Rare /hpf (0-Rare)
[2021-12-20 14:46] LABS: U Amphetamine Screen Not Detected; U Barbituate Screen Not Detected; U Benzodiazapine Screen Not Detected; U Buprenorphine Screen Not Detected; U Cannabinoids Screen Not Detected; U Cocaine Screen Not Detected; U Methadone Screen Not Detected; U Methamphetamine Screen Not Detected; U Opiates Screen Not Detected; U Oxycodone Screen Not Detected; U Phencyclidine Screen Not Detected; U Propoxyphene Screen Not Detected
[2021-12-20 14:55] LABS: Influenza A, PCR NEGATIVE (NEGATIVE); Influenza B, PCR NEGATIVE (NEGATIVE); Resp Syncytial Virus, PCR NEGATIVE (NEGATIVE); SARS-Cov-2 (COVID-19) PCR, MMC NEGATIVE (NEGATIVE)
[2021-12-20] MEDS ORDERED: HALOPERIDOL2 MG/1 M1 PO (17:30)
[2021-12-20] MEDS ORDERED: DIABETIC T100 MG/5 M PO (17:32)
[2021-12-20] MEDS ORDERED: LOPE2C PO (17:33)
[2021-12-20] MEDS ORDERED: DULCOLAX400 MG/5 M PO (17:44)
--- NOTE | 2021-12-20 18:13 | NUR ---
ADMIT: PATIENT ADMIT TO PCU 20 AT 1715. LETHARGIC AND WAKING TO VERBAL STIMULI. NOT PARTICIPATING IN ORIENTING QUESTIONS OR ASSESSMENT. OPENING EYES OCCASIONALY. WHEN ASKED ABOUT PAIN AND OTHER SYMPTOMS PATIENT STATES "MIND YOUR OWN BUISNESS AND SHUT YOUR LOUD MOUTH UP". NOT ABLE TO GET ANY ANSWERS OUT OF PATIENT FOR ADMIT ASSESSMENT AND HISTORY. USED SLIDE SHEET TO TRANSFER. ON 2L NASAL CANNULA SATING MID 90'S. LUNGS SOUNDING CLEAR AND DIM. TELE SHOWING AFIB WITH HR 110-130'S. DENIES CHEST PAIN. BP SOFT. MONITORING Q30MIN. ANTIBIOTICS INFUSED. NS AT 75 ML/HR INFUSING. RENAL ULTRASOUND COMPLETE. CLEAR LIQUID DIET. BEDREST. BED ALARM IN PLACE. Q2 TURNING AND NEEDED. BEY CATH IN PLACE DRAINING CLEAR/YELLOW URINE. RED/PURPLE/BLANCHABLE COCCYX. [facility] CALLED, EMERGENCY CONTACT IS JOESPH (SON) [phone]. WHEN ASKED PATIENT IF THIS RN COULD CALL SON PATIENT STATES "I'LL CAROL ANN YOU IF YOU CALL MY SON". WHEN ASKED IF I COULD UPDATE [facility] PATIENT STATES "NO, I DON'T HAVE EMERGENCY CONTACT, YOU CAN'T CALL ANYONE". THIS RN DID NOT CALL SON PER PATIENT REQUEST. CALL LIGHT IN REACH. PATIENT DENIES NEEDS AT THIS TIME. WILL CONTINUE TO MONITOR AND REPORT OFF TO ONCOMING RN.
--- NOTE | 2021-12-20 19:00 | NUR ---
PATIENT SBP 60-70'S. WITH HR 110-130'S AFIB. DR. JEFFRIES CALLED, NEW ORDERS FOR 500 ML NS BOLUS AND IV DIGOXIN. SEE EMAR. BOLUS INFUSING AT THIS TIME. SBP 80'S. AND HR REMAINS 120'S. PATIENT CONFUSED AND PULLING ALL LINES AND CORDS. TELLING STAFF TO GET AWAY. WRIST RESTRAINTS PLACED AND ORDERS IN PLACE.
--- NOTE | 2021-12-21 02:24 | NUR ---
HYPOTENSION PT WITH MANUAL SBP 70'S. PT, ON POLST SHOWS DNR LIMITED TREATMENT WITH SON BEING DECISION MAKER. JOESPH AL, SON, CALLED REGARDING PT'S WISHES REGARDING TREATMENT BEYOND FLUID RESUSCITATION. EXPLAINED TO SON PT'S SEPSIS DX, CURRENT BLOOD PRESSURE, THE ROLE OF PRESSORS WHEN FLUIDS FAIL TO RAISE BLOOD PRESSURE WITH SEPSIS, CENTRAL LINE PLACEMENT, ETC. SON STATES THAT HE HAD DISCUSSION WITH MOTHER BEFORE BECOMING DEMENTED AND STATES THAT SHE WOULD WANT THESE THINGS. PROVIDER CALLED, WILL TRY ANOTHER FLUID BOLUS AND IF THAT DOES NOT WORK, ICU TRANSFER WITH PRESSORS.
[2021-12-21 04:23] LABS: Hematocrit 38.3 % (33.0-51.0); Hemoglobin 12.3 g/dL (11.5-16.0); Mean Corpuscular HGB 30.6 pg (26.0-34.0); Mean Corpuscular HGB Conc 32.1 g/dL (31.5-36.5); Mean Corpuscular Volume 95 fL (80-100); Mean Platelet Volume 9.7 fL (9.1-12.4); Platelet Count 221 K/mm3 (150-400); RDW Coefficient Variation 12.9 % (11.7-14.2); RDW Standard Deviation 45.3 fL (35.1-46.3); Red Blood Cell Count 4.02 M/mm3 (3.80-5.20); White Blood Cell Count 9.09 K/mm3 (4.00-11.30)
[2021-12-21 04:42] LABS: Bun/Creatinine Ratio 44.2 (12.0-20.0); Calcium, Blood 8.4 mg/dL (8.5-10.1); Creatinine, Blood 1.13 mg/dL (0.40-1.00); Potassium, Blood 3.5 mmol/L (3.5-5.5)
--- NOTE | 2021-12-21 05:55 | NUR ---
SHIFT SUMMARY PATIENT REMAINED AGITATED AND CONFUSED T/O SHIFT. CURSING AND GRABBING AT STAFF WHEN PROVIDING CARE. BP LABILE WITH EPISODE OF SBP 70'S-SEE NURSE NOTE "HYPOTENSION". HR REMAINED HIGH IN BEGINNING OF SHIFT IN 120'S-130'S. CALL MADE TO DR. JEFFRIES AND ORDERS RECEIVED FOR DIG 0.125MG IV X 1. AFTER DOSE WAS GIVEN HR IMPROVED TO 90'S-110'S BEFORE RETURNING TO 120'S-130'S. RHYTHM REMAINED AFIB. PATIENT DENIED CP T/O SHIFT. PATIENT HAD FREQUENT BM THAT WERE BROWN, LIQUID WITH PASTY PIECES. PATIENT WOULD NOT ALERT STAFF TO BM-REQUIRED FREQUENT ATTENDS CHECKS. LUNGS REMAIN CLEAR AND DIM T/O. NO COUGH. 2LPM VIA NC WITH SPO2 MID TO HIGH 90'S. NO OTHER CHANGES DURING SHIFT.
--- NOTE | 2021-12-21 08:52 | NUR ---
AM NOTE: PATIENT ONLY ORIENTED TO SELF. NOT ABLE TO TELL ME WHERE SHE IS OR SITUATION. ATTEMPTING TO SWING AT STAFF WITH AM CARES AND NOT PARTICIPATING IN ASSESSMENT QUESTIONS. TELLING THIS RN "TO SHUT YOUR MOUTH". PATIENT IN BILATERAL WRIST RESTRAINTS. THIS RN GIVING BREAKS WHEN IN ROOM. Q2 TURNING AND NEEDED. PATIENT HAVING FREQUENT LOOSE/SMEAR STOOLS. NOT LIQUID ENOUGH FOR RECTAL TUBE. MEPILEX IN PLACE WELL JEWEL AREA CLEANED/CREAM/POWEDERED THIS AM. BEY CATH IN PLACE DRAINING CLEAR/YELLOW URINE TO GRAVITY. CATH CARE COMPLETED THIS AM. ON 2L NASAL CANNULA SATING MID 90'S. NO COUGH. LUNGS SOUNDING CLEAR/DIM. RR WNL. TELE SHOWING AFIB WITH HR 110-130'S. BP STABLE THIS AM, MONITORING Q15. NS INFUSING AT 75ML/HR INTO RIGHT UPPER ARM POWERGLIDE. QTC MEASURING 0.45. STRONG PERIPHERAL PULSES. CLEAR LIQUID DIET, PATIENT REFUSING TRAY THIS AM. DRINKING WATER WITH ASSISTANCE. THIS RN OFFERING WATER AND OTHER FOOD OPTIONS EVERYTIME IN ROOM. NO ISSUES NOTED WITH SWALLOWING. Q4 ORAL CARE AND NEEDED. NO UPPER TEETH, GUMS PINK AND SLIGHTLY INFLAMMED, NO OPEN SORES NOTED IN MOUTH. CALL LIGHT IN REACH. WILL CONTINUE TO MONITOR.
--- NOTE | 2021-12-21 10:26 | NUR ---
PATIENT CONVERTED TO SR WITH FHB, BBB, AND QTC PROLONGED - MEASURING AT 0.52. DR. AUGUST CALLED AND NOTIFIED ABOUT CHANGE IN TELE. NEW ORDERS FOR [facility] SOFT DIET. NO ISSUES NOTED WITH SWALLOWING THIS AM. DR. AUGUST ALSO NOTIFIED ABOUT COMPLETE MED REC WITH [facility]. THIS RN TO PLACE DIET ORDERS. BP REMAINS STABLE.
--- NOTE | 2021-12-21 11:00 | NUR ---
SPOKE WITH SON JOESPH ([phone]) WHO IS LEGAL GUARDIAN PER POLST DOCUMENTATION. PROVIDED UPDATE AND PCU PHONE NUMBER. JOESPH EXPLAINED TO THIS RN THAT PATIENT GOES BETWEEN TWO PERSONALITIES OF BEING "A SWEET OLD LADY WHO IS HARD OF HEARING, TO A AGGITATED PERSON WHO WILL CUSS AND TRY TO CAROL ANN YOU, WELL SWING AT YOU". CALL PLACED TO [place] [phone] ([phone]) AND SPOKE WITH [facility] SHAE MCCOY. THIS RN ASKED WHAT PATIENTS NORMAL BASELINE IS MENTATION PEREIRA AND ADL'S. DARIUS EXPLAINED PATIENT NORMALLY EATS A [facility] SOFT DIET, WITH NO ISSUES SWALLOWING AND PILLS WHOLE IN APPLESAUCE. PATIENT NORMALLY IN WHEELCHAIR, STANDING TO PIVOT TO BED/BSC. STATES HER BASELINE HR 60-70'S, AND BASELINE BP 115-130'S/60-80'S. PATIENT SLEEPING AT THIS TIME. CALL LIGHT IN REACH.
--- NOTE | 2021-12-21 18:25 | NUR ---
SHIFT SUMMARY: SEE PREVIOUS NOTE FOR UPDATES. PATIENT REMAINS CONFUSED WHEN AWAKE. BILATERAL WRIST RESTRAINTS REMAIN IN PLACE. PATIENT AT TIMES TRYING TO HIT AND SWING AT STAFF WHEN DOING CARES. ON 1 L NASAL CANNULA SATING ABOVE 95%. TELE CONTINUES TO SHOW SR WITH FHB AND BBB WITH HR 80-90'S. PATIENT DOES NOT APPEAR TO BE IN ANY PAIN. DOES NOT ANSWER ASSESSMENT QUESTIONS. FREQUENT LOOSE STOOLS. ATTENDS IN PLACE. Q2 TURNS. ORAL CARE Q4 AND NEEDED. SUCTION AT BEDSIDE. BEY CATH REMAIN IN PLACE DRAINING CLEAR/YELLOW URINE. ANTIBIOTICS INFUSED. NS RUNNING AT 75 ML/HR. WORKED WITH PHYSICAL THERAPY TODAY, SITTING AT EDGE OF BED TO DANGLE LEGS. PATIENT SLEEPING MOST OF AFTERNOON. VITAL SIGNS REMAINS STABLE. PATIENT ABLE TO EAT A GOOD LUNCH AND DRINKING FLUIDS THROUGOUT DAY. NOT ALERT ENOUGH AT THIS TIME TO EAT DINNER. CALL LIGHT IN REACH. WILL CONTINUE TO MONITOR AND REPORT OFF TO ONCOMING RN.
[2021-12-22 06:19] LABS: Albumin, Blood 2.1 g/dL (3.4-5.0); Anion Gap 8 mmol/L (6-16); Blood Urea Nitrogen 27 mg/dL (8-24); Bun/Creatinine Ratio 32.3 (12.0-20.0); CO2, Blood 19 mmol/L (21-32); Calcium, Blood 8.8 mg/dL (8.5-10.1); Chloride, Blood 118 mmol/L (98-108); Creatinine, Blood 0.84 mg/dL (0.40-1.00); Glomerular Filtration Rate 71 (60-); Glucose, Blood 109 mg/dL (70-99); Phosphorus, Blood 1.5 mg/dL (2.5-4.9); Potassium, Blood 3.2 mmol/L (3.5-5.5); Sodium, Blood 145 mmol/L (136-145)
--- NOTE | 2021-12-22 09:35 | NUR ---
AM NOTE: PATIENT LETHARGIC AND SLEEPY THIS AM. WAKING FOR CARES AND BREAKFAST. PERRLA. NOT PARTICIPATING IN ASSESSMENT QUESTIONS AND GETTING IRRITATED WITH STAFF. BILATERAL WRIST RESTRAINTS IN PLACE, REMOVING WHEN RN IN ROOM. Q2 TURNING AND NEEDED. ON 2L NASAL CANNULA SATING ABOVE 95%. LUNGS SOUNDING CLEAR AND DIM. OCCASIONAL WEAK COUGH. ASPIRATION PRECAUTIONS WHEN HELPING PATIENT EAT. SAFE SWALLOW. SUCTION AT BEDSIDE. PILLS CRUSHED IN APPLESAUCE. TELE SHOWING SR WITH BBB AND HR 70-80'S. BP STABLE. NO SIGNS OF EDEMA. NS AT 75 ML/HR. K PHOS REPLACED THIS AM. BEY CATH IN PLACE DRAINING CLEAR/YELLOW URINE TO GRAVITY. CATH CARE COMPLETED THIS AM ALONG WITH AM CARES AND BED BATH. LOOSE STOOLS, ATTENDS IN PLACE. COCCYC RED AND BLANCHABLE. MEPILEX IN PLACE. SKIN FOLDS RED, CLEANED AND POWDERED. BOWEL TONES PRESENT. STRONG PERIPHERAL PULSES. TMAX THIS AM 100.0, TYLENOL GIVEN WITH GOOD RESULTS. TEMP DOWN TO 98.8. CALL LIGHT IN REACH. WILL CONTINUE TO MONITOR. PATIENT SLEEPING AT THIS TIME.
--- NOTE | 2021-12-22 11:23 | NUR ---
CALL PLACED TO DR. AUGUST, THIS RN CONCERNED WITH RECENT WET SOUNDING COUGH AND POSSIBLE FLUID OVERLOAD. DR. AUGUST PLANS TO COME SEE PATIENT. NO NEW ORDERS FOR THIS RN.
[2021-12-22 16:32] LABS: Gentamicin, Peak 12.8 ug/mL (4.0-8.0)
--- NOTE | 2021-12-22 18:04 | NUR ---
SHIFT SUMMARY: PATIENT LETHARGIC AND NOT RESPONSIVE THIS SHIFT COMPARED TO OTHERS. WILL WAKE TO TOUCH/VOICE. NOT INTERACTIVE WITH STAFF QUESTIONS. WILL OCCASIONALY GET IRRITATED WITH QUESTIONS AND STATE "LEAVE ME ALONE, YOUR BUGGING ME". Q2 TURNING AND NEEDED. TELE SHOWING SR WITH BBB AND HR 70-80'S. BP STABLE. ON 2L NASAL CANNULA THROUGHOUT SHIFT SATING ABOVE 95%. AFTER IV LASIX DOSE, PATIENT OUTPUT MEASURED AT 1900ML. NO LONGER HAVING WET COUGH IV ANTIBIOTICS GIVEN. PATIENT TO LETHARGIC TO EAT LUNCH AND DINNER TODAY. SWALLOWING WELL WHEN ALERT, ABLE TO EAT BREAKFAST. ATTENDS IN PLACE. ONE BOWEL MOVEMENT THIS SHIFT. MEPILEX C/D/I ON COCCYX. CALL LIGHT IN REACH. WILL CONTINUE TO MONITOR AND REPORT OFF TO ONCOMING RN.
--- NOTE | 2021-12-22 20:25 | NUR ---
CARE ASSUMPTION: RECEIVED REPORT FROM YRN [place] RN. PATIENT OPENED HER EYES TO VOICE AND STATED, "I CAN'T SEE HER" WHEN YRN INTRODUCED THIS RN. THIS RN MOVED CLOSER TO PATIENT'S HEAD AND SHE STATED, "THAT'S BETTER. I'M FEELING MUCH BETTER." OFF-GOING RN STATED THIS IS THE MOST PATIENT HAS SPOKEN DURING DAY SHIFT. PATIENT VERY LETHARGIC, A&O X1, SLOW TO FOLLOW COMMANDS IF SHE FOLLOWS THEM, VS WNL ON 2L NC. MEDICATED PER EMAR - PILL GIVEN IN APPLESAUCE WITH SIPS OF WATER. PATIENT STATES HER "BUTT AND BACK" ARE SORE. PATIENT REPOSITIONED Q2. BED LOW WITH CALL LIGHT IN REACH AND BED ALARM SET.
--- NOTE | 2021-12-23 04:58 | NUR ---
SHIFT SUMMARY: PATIENT A&O X1, BP & HR WNL, O2 >94% 2-3L NC, AND RECTAL TEMP 99.2-100.1*. PATIENT LETHARGIC, SLOW TO RESPOND, AND HOT TO THE TOUCH - COOL PACK APPLIED. PATIENT DENIES PAIN WHEN ALERT. BEY DRAINING YELLOW URINE TO GRAVITY. MEDICATED PER EMAR - NO DIFFICULTY SWALLOWING OR USING A STRAW. MEPIPLEX ON COCCYX C/D/I. PATIENT TURNED Q2. NO BMS THIS SHIFT. BED LOW WITH ALARM SET AND CALL LIGHT IN REACH. WILL CONTINUE TO MONITOR AND REPORT TO ONCOMING RN.
[2021-12-23 07:22] LABS: Gentamicin, Random 2.6 ug/Ml
[2021-12-23 07:31] LABS: Albumin, Blood 2.1 g/dL (3.4-5.0); Anion Gap 5 mmol/L (6-16); Blood Urea Nitrogen 17 mg/dL (8-24); Bun/Creatinine Ratio 22.9 (12.0-20.0); CO2, Blood 24 mmol/L (21-32); Calcium, Blood 8.9 mg/dL (8.5-10.1); Chloride, Blood 116 mmol/L (98-108); Creatinine, Blood 0.74 mg/dL (0.40-1.00); Glomerular Filtration Rate 82 (60-); Glucose, Blood 101 mg/dL (70-99); Phosphorus, Blood 2.5 mg/dL (2.5-4.9); Potassium, Blood 3.5 mmol/L (3.5-5.5); Sodium, Blood 145 mmol/L (136-145)
[2021-12-23 12:08] LABS: BASOPHILS ABSOLUTE AUTO 0.05 K/mm3 (0.00-0.23); BASOPHILS PERCENT AUTO 1 % (0-2); EOSINOPHILS ABSOLUTE AUTO 0.27 K/mm3 (0.00-0.68); EOSINOPHILS PERCENT AUTO 3 % (0-6); Hematocrit 39.4 % (33.0-51.0); Hemoglobin 12.7 g/dL (11.5-16.0); IMMATURE GRAN ABSOLUTE AUTO 0.21 K/mm3 (0.00-0.10); IMMATURE GRAN PERCENT AUTO 2 % (0-1); LYMPHOCYTES ABSOLUTE AUTO 1.11 K/mm3 (0.84-5.20); LYMPHOCYTES PERCENT AUTO 10 % (21-46); MONOCYTES ABSOLUTE AUTO 0.77 K/mm3 (0.16-1.47); MONOCYTES PERCENT AUTO 7 % (4-13); Mean Corpuscular HGB 30.2 pg (26.0-34.0); Mean Corpuscular HGB Conc 32.2 g/dL (31.5-36.5); Mean Corpuscular Volume 94 fL (80-100); Mean Platelet Volume 9.3 fL (9.1-12.4); NEUTROPHILS ABSOLUTE AUTO 8.27 K/mm3 (1.96-9.15); NEUTROPHILS PERCENT AUTO 77 % (41-73); Platelet Count 232 K/mm3 (150-400); RDW Coefficient Variation 13.2 % (11.7-14.2); RDW Standard Deviation 45.6 fL (35.1-46.3); White Blood Cell Count 10.68 K/mm3 (4.00-11.30)
--- NOTE | 2021-12-23 17:18 | NUR ---
SHIFT SUMMARY PT HAS BEEN LETHARGIC FOR MOST OF MY SHIFT, BUT HAS TIMES WHEN SHE IS ALERT ENOUGH TO ANSWER QUESTIONS FROM STAFF. PT HAS MAINTAINED SP02 >94% ON 1-2 VIA NC WITH NO SOB OR DYSPNEA NOTED AT REST. PT TEMP HAS SLOWLY INCREASED T/O THE SHIFT, BUT WAS CONTROLLED VIA EMAR WELL COLD THERAPY (ICE). PT'S BEY IS PATIENT AND DRAINING TO GRAVTIY. SOFT RESTRAINTS HAVE BEEN DC'd FOR PT HAS NOT BEEN PULLING AT LINES OR ATTEMPTED TO HIT STAFF T/O MY SHIFT. PT'S BP AND HR HAVE BEEN STABLE. DR. BRADLEY SAW THE PT EARLY THIS AM AND CHNAGED PT TO MED STATUS WITH NO TELE. PT HAS BEEN FREQUENTLY REPOSITIONED TO MAINTAIN COMFORT AND TO PREVENT ANY FURTHER SKIN BREAKDOWN. POSSIBE DC WITHIN THE NEXT COUPLE OF DAYS BACK TO [facility]. TERESA CISNEROS
--- NOTE | 2021-12-23 23:26 | NUR ---
CARE ASSUMPTION: PATIENT A&O X2, VS WNL ON 2L NC. BEY DRAINING TO GRAVITY. PATIENT TALKING WITH STAFF WAXES AND WANES WITH ORIENTATION TO SITUATION. COOPERATIVE WITH CARE AND USING CALL LIGHT APPROPRIATELY. BED LOW WITH CALL LIGHT IN REACH.
--- NOTE | 2021-12-24 18:14 | NUR ---
SHIFT SUMMARY PT'S MENTATION WAXES AND WANES. SHE IS RESPONSIVE TO VOICE AND HARD TO WAKE UP AT TIMES. SPOKE WITH [facility] NURSE WHO CONFIRMED THAT THIS IS HER BASELINE. PT FEBRILE AND TREATED PER EMR. REMAINS ON 2 LITERS O2 TO MAINTAIN SATS ABOVE 90%. PT DOES NOT ANSWER QUESTIONS APPROPRIATELY BUT IS PLEASANT. MEDICAL STATUS NO TELE.
--- NOTE | 2021-12-24 23:25 | NUR ---
CARE ASSUMPTION: PATIENT AWAKE AT START OF SHIFT THOUGH SLOW TO RESPOND. A&O TO SELF AND "IN [place]" BUT NOT THAT SHE IS IN THE HOSPITAL OR WHY. LOW GRADE FEVER. MEDICATED PER EMAR. BEY DRAINING TO GRAVITY. BED LOW, BED ALARM SET, AND CALL LIGHT IN REACH.
[2021-12-25 05:48] LABS: Gentamicin, Trough 0.6 ug/mL (0.0-1.9)
--- NOTE | 2021-12-25 06:19 | NUR ---
SHIFT SUMMARY: PATIENT VS WNL ON 2L NC WITH SLIGHTLY ELEVATED TEMP. MEDICATED PER EMAR. NO CHANGE IN NEURO. REPOSITIONED Q2. PATIENT SLEPT ~5 HRS AND USED CALL LIGHT OR CALLED OUT WHEN AWAKE. POWERGLIDE DID NOT DRAW FOR AM LABS. BED LOW WITH CALL LIGHT IN REACH - BED ALARM SET. WILL REPORT TO ONCOMING RN.
--- NOTE | 2021-12-25 12:55 | NUR ---
REPORT GIVEN TO JUANCARLOS HAYES, NO ACUTE CHANGE SINCE THE BEGINNING OF THE SHIFT, VITALS HAS BEEN STABLE. PT CALLS APPROPRIATELY A&O X2, SLOW TO RESPOND. PT C/O SHOULDER PAIN THIS MORNING MEDICATED WITH TYLENOL AND WAS EFFECTIVE. DENIES CHEST PAIN/PRESSURE. BEY DRAINING VIA GRAVITY YONATHAN COLORED URINE. PT HAS BEEN REPOSITIONED FOR COMFORT. CONTINUES TO RECEIVED IV ABO. NO OTHER ISSUES ENCOUNTERED WILL MONITOR
--- NOTE | 2021-12-25 18:18 | NUR ---
Shift Summary Arrived to unit around 1145. Received report that patient has been sleeping. Upon receipt of patient, she was still sleeping. Responding to verbal stimuli, opening eyes upon verbal command. Appears comfortable. Settled to room, call light nearby, bed in lowest position, bed alarm on.
[2021-12-26 04:09] LABS: Hematocrit 39.1 % (33.0-51.0); Hemoglobin 12.9 g/dL (11.5-16.0); Mean Corpuscular HGB 30.8 pg (26.0-34.0); Mean Corpuscular Volume 93 fL (80-100); Mean Platelet Volume 8.8 fL (9.1-12.4); Platelet Count 227 K/mm3 (150-400); RDW Standard Deviation 44.7 fL (35.1-46.3); Red Blood Cell Count 4.19 M/mm3 (3.80-5.20); White Blood Cell Count 8.35 K/mm3 (4.00-11.30)
--- NOTE | 2021-12-26 04:27 | NUR ---
SHIFT SUMMARY: PT IS ALERT WITH MINOR CONFUSION, SLOW TO RESPOND. PT IS LETHARGIC AT THE START OF THE SHIFT, BECAME SO AGAIN IN THE [employer]PER[employer] HEL[employer] HOURS, DIFFICULT TO AROUSE, VS STABLE. PT DID NOT USE HER CALL LIGH OVERNIGHT. PT IS A MAX ASSIST, NOT OUT OF BED THIS SHIFT. PT DENIES PAIN, NAUSEA, VOMITING, AND SOB. PT TOOK MEDS WHOLE WITH APPLE SAUCE. PT SLEEPING MOST OF THE NIGHT. BED IN LOW POSITION, CALL LIGHT WITHIN REACH, BED ALARM SET. WILL CONTINUE TO MONITOR.
[2021-12-26 04:36] LABS: Albumin/Globulin Ratio 0.6 (0.8-1.8); Bilirubin, Total 0.3 mg/dL (0.1-1.0); Bun/Creatinine Ratio 17.3 (12.0-20.0); Calcium, Blood 9.6 mg/dL (8.5-10.1); Creatinine, Blood 0.87 mg/dL (0.40-1.00); Globulin, Blood 3.2 g/dL (2.2-4.0); Potassium, Blood 3.5 mmol/L (3.5-5.5); Thyroid Stimulating Hormone 1.78 uIU/mL (0.360-4.800); Total Protein, Blood 5.2 g/dL (6.4-8.2)
--- NOTE | 2021-12-26 11:07 | NUR ---
RN NOTE MS ELLER IS ORIENTATED TO HER NAME AND DATE OF . SHE KNOWS SHE IS IN HOSPITAL IN [place]. HER SPEACH IS SLOW AND SHE SEEMS TO BE CONFUSED IN HER CONVERSATION. ON OXYGEN 2L NC, NON-PRODUCTIVE COUGH. BEY IN, CLEAR YELLOW URINE. BED LOW, CALL LIGHT IN REACH. BED ALARM ON.
--- NOTE | 2021-12-26 13:17 | NUR ---
RN NOTE OFF OXYGEN FOR 30 MINUTES. NO SOB. O2 SAT 94-95% ON ROOM AIR.
[2021-12-26] MEDS ORDERED: NITR100CA PO (14:15)
--- NOTE | 2021-12-26 15:36 | NUR ---
DISCHARGE BEY REMOVED INTACT AT 1500HRS. CASE POWERGLIDE REMOVED INTACT AT 1500HRS. PT GIVEN DISCHARGE WRITTEN INFORMATION WHICH SHE SAID HER WILL LOOK OVER. TRANSPORT ARRIVED TO TAKE PT TO [facility] VIA [employer]. PT SENT IN HER OWN CLOTHING WITH HER SHOES, NO OTHER BELONGINGS IN HER ROOM. I CALLED [facility] TO GIVE THEM TRANSFER INFORMATION. PT LEFT AT 1530HRS.
== END 2021-12-26 15:29 | DRG 872 ==
LOC: ER 13:14 → PCU 15:46 → MEDS 15:46 → PCU 17:06 → MEDS 12-25 15:45
PROVIDERS: Emergency Medicine; Internal Medicine; ADMIT Internal Medicine
DX: A41.51 Sepsis due to Escherichia coli [E. coli] (principal); N17.9 Acute kidney failure, unspecified; N39.0 Urinary tract infection, site not specified; R65.20 Severe sepsis without septic shock; Z20.822 Contact with and (suspected) exposure to COVID-19; Z66 Do not resuscitate; E78.5 Hyperlipidemia, unspecified; I25.10 Atherosclerotic heart disease of native coronary artery without angina pectoris; M81.0 Age-related osteoporosis without current pathological fracture; I95.9 Hypotension, unspecified; I12.9 Hypertensive chronic kidney disease with stage 1 through stage 4 chronic kidney disease, or unspecified chronic kidney disease; N18.9 Chronic kidney disease, unspecified; E87.70 Fluid overload, unspecified; F20.9 Schizophrenia, unspecified; F03.90 Unspecified dementia, unspecified severity, without behavioral disturbance, psychotic disturbance, mood disturbance, and anxiety; B95.4 Other streptococcus as the cause of diseases classified elsewhere; E86.0 Dehydration; Z86.16 Personal history of COVID-19; Z87.891 Personal history of nicotine dependence; Z88.1 Allergy status to other antibiotic agents; Z88.2 Allergy status to sulfonamides; Z88.8 Allergy status to other drugs, medicaments and biological substances; Z79.82 Long term (current) use of aspirin; Z79.899 Other long term (current) drug therapy
CPT/HCPCS: 0241U; 36415; 51702; 71045; 76770; 80048; 80053; 80069; 80170; 81001; 83605; 83880; 84443; 84484; 85025; 85027; 87040; 87077; 87086; 87186; 93005; 93010; 94760; 94762; 96361-59; 96374-59; 97162; 97530; 99285-25; A9270; C1751; J0295; J0696; J1160; J1580; J1650; J1940; J7030; J7040; J7060

== ENCOUNTER → 2022-01-13 | Outpatient (CLI) | payer OTHER ==
[~2022-01-13] MED LIST changes: +DIABETIC T100 MG/5 M PO; +DULCOLAX400 MG/5 M PO; +HALOPERIDOL2 MG/1 M1 PO; +LOPE2C PO; +NITR100CA PO; +OLAN5 PO
[2022-01-13 12:17] LABS: Source, Urine Clean Catch
[2022-01-13 13:18] LABS: Appearance, Urine Cloudy (Clear); Bilirubin, Urine Neg (Neg); Blood, Urine 1+ (Neg); Color, Urine Yellow (P-Yellow); Glucose Qualitative, Urine Neg (Neg); Ketones, Urine Neg (Neg); Leukocyte Esterase, Urine 2+ (Neg); Nitrite, Urine Pos (Neg); Protein, Urine 2+ (Neg); Urobilinogen, Urine NORM (Normal)
[2022-01-13 13:24] LABS: Bacteria Many /hpf; Squamous Epithelial Cells Few /hpf (Few); White Blood Cells, Urine 50-100 /hpf (0-5)
== END | disposition home or self-care (01) ==
LOC: LAB SHORT 12:13 → LAB 12:13
PROVIDERS: Family Medicine
DX: N39.0 Urinary tract infection, site not specified (principal)
CPT/HCPCS: 81001; 87077; 87086; 87186

== ENCOUNTER 2022-01-17 14:29 | Day surgery (SDC) | payer OTHER ==
[~2022-01-17 14:29] MED LIST changes: -OLAN5 PO
[2022-01-17] MEDS ORDERED: OLAN5 PO (17:54)
== END 2022-01-17 16:52 | disposition home or self-care (01) ==
LOC: ATC 14:29
DX: N39.0 Urinary tract infection, site not specified (principal); R31.9 Hematuria, unspecified
CPT/HCPCS: J1335

== ENCOUNTER 2022-01-17 17:55 | Emergency (ER) | payer OTHER ==
[~2022-01-17] VITALS: Ht 152.4 cm; Wt 72.6 kg
[~2022-01-17 17:55] MED LIST changes: +OLAN5 PO
[2022-01-17 18:35] LABS: BASOPHILS ABSOLUTE AUTO 0.03 K/mm3 (0.00-0.23); BASOPHILS PERCENT AUTO 0 % (0-2); EOSINOPHILS ABSOLUTE AUTO 0.24 K/mm3 (0.00-0.68); EOSINOPHILS PERCENT AUTO 2 % (0-6); Hemoglobin 13.4 g/dL (11.5-16.0); IMMATURE GRAN ABSOLUTE AUTO 0.08 K/mm3 (0.00-0.10); IMMATURE GRAN PERCENT AUTO 1 % (0-1); LYMPHOCYTES ABSOLUTE AUTO 1.46 K/mm3 (0.84-5.20); LYMPHOCYTES PERCENT AUTO 14 % (21-46); MONOCYTES ABSOLUTE AUTO 0.56 K/mm3 (0.16-1.47); MONOCYTES PERCENT AUTO 5 % (4-13); Mean Corpuscular HGB 30.8 pg (26.0-34.0); Mean Corpuscular HGB Conc 31.9 g/dL (31.5-36.5); Mean Corpuscular Volume 97 fL (80-100); Mean Platelet Volume 8.7 fL (9.1-12.4); NEUTROPHILS ABSOLUTE AUTO 8.07 K/mm3 (1.96-9.15); NEUTROPHILS PERCENT AUTO 77 % (41-73); Platelet Count 237 K/mm3 (150-400); RDW Coefficient Variation 13.1 % (11.7-14.2); RDW Standard Deviation 46.4 fL (35.1-46.3); Red Blood Cell Count 4.35 M/mm3 (3.80-5.20); White Blood Cell Count 10.44 K/mm3 (4.00-11.30)
[2022-01-17 18:59] LABS: Albumin, Blood 3.2 g/dL (3.4-5.0); Albumin/Globulin Ratio 0.9 (0.8-1.8); Bilirubin, Total 0.3 mg/dL (0.1-1.0); Bun/Creatinine Ratio 29.7 (12.0-20.0); Calcium, Blood 9.3 mg/dL (8.5-10.1); Creatinine, Blood 1.11 mg/dL (0.40-1.00); Globulin, Blood 3.4 g/dL (2.2-4.0); Potassium, Blood 3.8 mmol/L (3.5-5.5); Total Protein, Blood 6.6 g/dL (6.4-8.2)
[2022-01-17 19:02] LABS: Source, Urine Straight Cath
[2022-01-17 19:06] LABS: Bilirubin, Urine Neg (Neg); Blood, Urine Neg (Neg); Glucose Qualitative, Urine Neg (Neg); Ketones, Urine Neg (Neg); Leukocyte Esterase, Urine Neg (Neg); Nitrite, Urine Neg (Neg); Protein, Urine 2+ (Neg); Specific Gravity, Urine 1.025 (1.003-1.022); Urobilinogen, Urine NORM (Normal)
[2022-01-17 19:18] LABS: Appearance, Urine Clear (Clear); Color, Urine Pale Yellow (P-Yellow)
[2022-01-17 19:20] LABS: Amorphous Light (0-Heavy); Bacteria Few /hpf; Red Blood Cells, Urine 0-2 /hpf (0-2); Squamous Epithelial Cells Few /hpf (Few)
== END 2022-01-17 21:07 | disposition home or self-care (01) ==
LOC: ER 17:55
PROVIDERS: Student in an Organized Health Care Education/Training Program
DX: R09.89 Other specified symptoms and signs involving the circulatory and respiratory systems (principal); I12.9 Hypertensive chronic kidney disease with stage 1 through stage 4 chronic kidney disease, or unspecified chronic kidney disease; N18.9 Chronic kidney disease, unspecified; E78.5 Hyperlipidemia, unspecified; I25.10 Atherosclerotic heart disease of native coronary artery without angina pectoris; Z88.2 Allergy status to sulfonamides; Z88.6 Allergy status to analgesic agent; Z88.1 Allergy status to other antibiotic agents; Z88.8 Allergy status to other drugs, medicaments and biological substances; Z79.899 Other long term (current) drug therapy; Z79.82 Long term (current) use of aspirin
CPT/HCPCS: 51701; 71045; 80053; 81001; 85025; 94640; 94664; 99284-25; J7030

== ENCOUNTER → 2022-01-28 | Outpatient (CLI) | payer OTHER ==
[2022-01-28 12:27] LABS: Source, Urine Clean Catch
[2022-01-28 13:35] LABS: Appearance, Urine Clear (Clear); Bilirubin, Urine Neg (Neg); Blood, Urine Neg (Neg); Color, Urine Yellow (P-Yellow); Glucose Qualitative, Urine Neg (Neg); Ketones, Urine Neg (Neg); Leukocyte Esterase, Urine 1+ (Neg); Nitrite, Urine Neg (Neg); Protein, Urine 1+ (Neg); Urobilinogen, Urine NORM (Normal)
[2022-01-28 13:59] LABS: Hyaline Casts 0-2 /lpf (0-2)
[2022-01-28 14:00] LABS: Bacteria Few /hpf; Red Blood Cells, Urine 0-2 /hpf (0-2); Renal Epithelial Rare /hpf (0-Rare); Squamous Epithelial Cells Few /hpf (Few); Transitional Epithelial Cells Rare /hpf (0-Rare); White Blood Cells, Urine 0-2 /hpf (0-5)
[2022-01-28 14:01] LABS: Mucus Light (0-Heavy)
== END | disposition home or self-care (01) ==
LOC: LAB 08:30 → LAB SHORT 08:30
PROVIDERS: Family Medicine
DX: N39.0 Urinary tract infection, site not specified (principal)
CPT/HCPCS: 81001; 87086